=== PATIENT | male | born 1980 | race Caucasian/White ===

== ENCOUNTER 2025-06-04 20:03 | Emergency (ER) | payer BC ==
[~2025-06-04] VITALS: Ht 188 cm; Wt 95.3 kg
[2025-06-04 22:40] VITALS: PULSE 77; RESP 16; TEMP 97.9
[2025-06-04 23:15] VITALS: BP 131/80; PULSE 77; RESP 16; TEMP 97.9; O2SAT 98
== END 2025-06-04 22:48 | disposition home or self-care (01) ==
LOC: FSED 20:23
DX: R20.0 Anesthesia of skin (principal); R51.9 Headache, unspecified; D72.829 Elevated white blood cell count, unspecified; F41.9 Anxiety disorder, unspecified; F43.9 Reaction to severe stress, unspecified; F41.0 Panic disorder [episodic paroxysmal anxiety]
CPT/HCPCS: 80053; 80307; 81003; 85025; 99284